=== PATIENT | male | born 1945 | race Hispanic/Latino ===

== ENCOUNTER 2019-09-21 05:44 | Day surgery (SDC) | payer OTHER ==
[~2019-09-21] VITALS: Ht 167.6 cm; Wt 82.6 kg
[~2019-09-21 05:44] MED LIST: BACL10TA PO; CLON0.5T4 PO; DORZ10DR19 OU; EZET10TA48 PO; FINA5TAB41 PO; LATA7.5D OU; NITR0.4T SL; OLME5TAB6 PO; OMEP20TA25 PO; PRAV40TA3 PO; TAMS-1 PO; TICA90TA PO
[2019-09-21] MEDS ORDERED: SODIUM CHLORIDE 0.9% 1000ML 1,000 ML IV ONE (05:55)
[2019-09-21 06:48] VITALS: BP 142/80
[2019-09-21] MEDS ORDERED: ASPI-555 PO (07:47)
[2019-09-21] MEDS ORDERED: AMLO2.5T4 PO (07:47)
[2019-09-21] MEDS ORDERED: PROPOFOL 10 MG/ML 20ML VIAL IV ONE ×2 (07:57)
[2019-09-21] MEDS ORDERED: GLYCOPYRROLATE 0.2 MG/ML 5 ML VIAL ONE (08:09)
[2019-09-21] MEDS ORDERED: EPINEPHRINE 1 MG/ML AMPULE ONE (08:15)
[2019-09-21 08:33] VITALS: BP 96/44
[2019-09-21 08:53] VITALS: BP 107/58
== END 2019-09-21 08:57 | disposition home or self-care (01) ==
LOC: ENDO 05:44 → DAH 05:44 → ENDO 08:57
PROVIDERS: ATTEND Internal Medicine
DX: R19.7 Diarrhea, unspecified (principal); R10.12 Left upper quadrant pain; K31.819 Angiodysplasia of stomach and duodenum without bleeding; K29.50 Unspecified chronic gastritis without bleeding; E78.5 Hyperlipidemia, unspecified; I10 Essential (primary) hypertension; F41.9 Anxiety disorder, unspecified; F32.9 Major depressive disorder, single episode, unspecified; Z95.5 Presence of coronary angioplasty implant and graft; Z79.899 Other long term (current) drug therapy; Z82.49 Family history of ischemic heart disease and other diseases of the circulatory system
CPT/HCPCS: 43239; 43255; 45380; 88305; 93005; A4215; A4221; A4222; A4223; A4606; A4620; A4663; J0171; J2704 ×2; J3490; J7030

== ENCOUNTER → 2020-11-09 | Outpatient (CLI) | payer OTHER ==
[~2020-11-09] MED LIST changes: +AMLO2.5T4 PO; +ASPI-556 PO; -OMEP20TA25 PO
== END | disposition home or self-care (01) ==
LOC: SHCH 07:44
PROVIDERS: ATTEND Internal Medicine Cardiovascular Disease
DX: I73.9 Peripheral vascular disease, unspecified (principal)
CPT/HCPCS: 93925

== ENCOUNTER → 2021-11-02 | Outpatient (CLI) | payer OTHER | END | disposition home or self-care (01) | LOC: RAH 08:55 | PROVIDERS: ATTEND Internal Medicine Gastroenterology | DX: N28.1 Cyst of kidney, acquired (principal); R10.10 Upper abdominal pain, unspecified | CPT/HCPCS: 76700 ==

== ENCOUNTER 2021-11-17 09:37 | Emergency (ER) | payer OTHER ==
[~2021-11-17] VITALS: Ht 167.6 cm; Wt 81.2 kg
[2021-11-17] MEDS ORDERED: ONDANSETRON 4MG INJ IVP SCH (10:30)
[2021-11-17] MEDS ORDERED: MORPHINE 4 MG SYG IVP SCH (10:30)
[2021-11-17] MEDS ORDERED: PANTOPRAZOLE 40 MG/VIAL IVP SCH (10:30)
[2021-11-17] MEDS ORDERED: 0.9%NACL 1000ML 1,000 ML IV SCH (10:30)
[2021-11-17] MEDS ORDERED: LIDOCAINE HCL 2% VISCOUS 15 ML UDCUP PO SCH (10:30)
[2021-11-17] MEDS ORDERED: MAG/ALUM/SIMETH 30 ML UDCUP PO SCH (10:30)
[2021-11-17] MEDS ORDERED: DICYCLOMINE HCL 10 MG/5 ML ML PO SCH (10:30)
[2021-11-17] MEDS ORDERED: MORPHINE 4 MG SYG ONE (10:31)
[2021-11-17] MEDS ORDERED: PANTOPRAZOLE 40 MG/VIAL ONE (10:32)
[2021-11-17] MEDS ORDERED: MAG/ALUM/SIMETH 30 ML UDCUP ONE (10:32)
[2021-11-17] MEDS ORDERED: ONDANSETRON 4MG INJ ONE (10:32)
[2021-11-17] MEDS ORDERED: DICYCLOMINE HCL 10 MG/5 ML ML PO ONE (10:32)
[2021-11-17] MEDS ORDERED: LIDOCAINE HCL 2% VISCOUS 15 ML UDCUP ONE (10:32)
[2021-11-17 11:00] LABS: BASOPHILS % (AUTO) 0.6 % (0.0-5.0); EOSINOPHILS % (AUTO) 1.5 % (0.0-8.0); HEMATOCRIT 38.3 % (42-54); LYMPHOCYTES % (AUTO) 31.5 % (21.0-51.0); MEAN CORPUSCULAR HEMOGLOBIN 30.8 pg (27.0-33.0); MEAN CORPUSCULAR HGB CONC 32.9 g/dL (32.0-36.0); MEAN CORPUSCULAR VOLUME 93.6 fL (79-99); MONOCYTES % (AUTO) 7.1 % (3.0-13.0); NEUTROPHILS % (AUTO) 59.1 % (40.0-77.0); PLATELET COUNT (AUTO) 163 K/uL (130-400); RED BLOOD CELL COUNT(AUTO) 4.09 MIL/uL (4.50-6.20); RED CELL DISTRIBUTION WIDTH 13.7 % (11.0-15.5); WHITE BLOOD COUNT (AUTO) 4.7 K/uL (4.8-10.8)
[2021-11-17 12:23] LABS: ALBUMIN 3.2 g/dL (3.5-5.0); BILIRUBIN,TOTAL 0.4 mg/dL (0.2-1.0); CREATININE 0.8 mg/dL (0.5-1.5)
[2021-11-17 13:11] VITALS: BP 143/65
[2021-11-17] MEDS ORDERED: ACET-2079 PO (13:18)
== END 2021-11-17 13:55 | disposition home or self-care (01) ==
LOC: EDH 09:37
DX: R10.10 Upper abdominal pain, unspecified (principal); R10.13 Epigastric pain; E78.00 Pure hypercholesterolemia, unspecified; I10 Essential (primary) hypertension; E86.1 Hypovolemia; Z79.82 Long term (current) use of aspirin; Z79.899 Other long term (current) drug therapy; Z98.890 Other specified postprocedural states
CPT/HCPCS: 36415; 80053; 83690; 85025; 93005; 96361; 96374; 96375; 99284; C9113; J2270; J2405; J7030

== ENCOUNTER → 2021-12-07 | Outpatient (CLI) | payer OTHER ==
[~2021-12-07] MED LIST changes: +ACET-2079 PO; +SINCALIDE 5 MCG ML VIAL IV ONE
== END | disposition home or self-care (01) ==
LOC: RAH 10:48
PROVIDERS: ATTEND Internal Medicine Gastroenterology
DX: R10.10 Upper abdominal pain, unspecified (principal)
CPT/HCPCS: 78227; A9537; J2805

== ENCOUNTER 2022-06-05 10:20 | Day surgery (SDC) | payer OTHER ==
[2022-06-05] VITALS (10 sets, daily range): BP systolic 124–164; BP diastolic 64–75
[~2022-06-05] VITALS: Ht 167.6 cm; Wt 77.6 kg
[~2022-06-05 10:20] MED LIST changes: -AMLO2.5T4 PO; -BACL10TA PO; -CLON0.5T4 PO; +DEXL60CA3 PO; +OLME5TAB29 PO; -OLME5TAB6 PO; -SINCALIDE 5 MCG ML VIAL IV ONE; -TICA90TA PO
[2022-06-05] MEDS ORDERED: 0.9%NACL 1000ML 1,000 ML IV ONE (11:07)
[2022-06-05] MEDS ORDERED: NAPR500T6 PO (12:09)
[2022-06-05] MEDS ORDERED: VALS320T16 PO (12:09)
[2022-06-05] MEDS ORDERED: PROPOFOL 10 MG/ML 20ML VIAL IV ONE (12:54)
[2022-06-05] MEDS ORDERED: GLYCOPYRROLATE 0.2 MG/ML 5 ML VIAL ONE (13:22)
== END 2022-06-05 14:25 | disposition home or self-care (01) ==
LOC: DAH 10:20 → ENDO 10:20
PROVIDERS: ATTEND Pediatrics Pediatric Gastroenterology
DX: R93.2 Abnormal findings on diagnostic imaging of liver and biliary tract (principal); Z20.822 Contact with and (suspected) exposure to COVID-19; R10.12 Left upper quadrant pain; K86.89 Other specified diseases of pancreas; R63.4 Abnormal weight loss; I25.2 Old myocardial infarction; I25.10 Atherosclerotic heart disease of native coronary artery without angina pectoris; I10 Essential (primary) hypertension; F41.9 Anxiety disorder, unspecified; F32.A Depression, unspecified; E78.5 Hyperlipidemia, unspecified; M19.90 Unspecified osteoarthritis, unspecified site; Z98.890 Other specified postprocedural states; Z86.010 Personal history of colon polyps; Z95.1 Presence of aortocoronary bypass graft; Z79.899 Other long term (current) drug therapy
CPT/HCPCS: 87426; 43237; 93005; J7030; J2704; J3490; A4620; A4215; A4223; A4222; A4221; A4663; A4606

== ENCOUNTER → 2023-04-08 | Outpatient (CLI) | payer OTHER ==
[~2023-04-08] MED LIST changes: -ACET-2079 PO; +NAPR500T6 PO; +VALS320T16 PO
[2023-04-08 12:47] LABS: CHOLESTEROL 163 mg/dL (<200); HDL CHOLESTEROL 79 mg/dL (29-71); LDL DIRECT 72 mg/dL (0-99); TRIGLYCERIDES 47 mg/dL (30-200)
== END | disposition home or self-care (01) ==
LOC: LAB 08:18
PROVIDERS: ATTEND Internal Medicine Cardiovascular Disease
DX: E78.5 Hyperlipidemia, unspecified (principal)
CPT/HCPCS: 36415; 80061

== ENCOUNTER 2023-06-18 06:41 | Day surgery (SDC) | payer OTHER ==
[2023-06-14 17:04] LABS: BASOPHILS # (AUTO) 0.03 K/uL (0.00-0.20); BASOPHILS % (AUTO) 0.6 % (0.0-5.0); EOSINOPHILS # (AUTO) 0.07 K/uL (0.00-0.70); EOSINOPHILS % (AUTO) 1.4 % (0.0-8.0); IMMATURE GRANULOCYTE ABSOLUTE 0.02 K/uL (0-1); LYMPHOCYTES # (AUTO) 2.1 K/uL (1.0-4.8); LYMPHOCYTES % (AUTO) 39.9 % (21.0-51.0); MEAN CORPUSCULAR HGB CONC 32.4 g/dL (32.0-36.0); MEAN CORPUSCULAR VOLUME 95.6 fL (79-99); MONOCYTES # (AUTO) 0.4 K/uL (0.1-1.0); MONOCYTES % (AUTO) 7.4 % (3.0-13.0); NEUTROPHILS # (AUTO) 2.6 K/uL (1.8-7.7); NEUTROPHILS % (AUTO) 50.3 % (40.0-77.0); PLATELET COUNT (AUTO) 173 K/uL (130-400); RED BLOOD CELL COUNT(AUTO) 3.87 MIL/uL (4.50-6.20); RED CELL DISTRIBUTION WIDTH 13.5 % (11.0-15.5); WHITE BLOOD COUNT (AUTO) 5.2 K/uL (4.8-10.8)
[2023-06-14 17:18] LABS: ALBUMIN 3.5 g/dL (3.5-5.0); BILIRUBIN,TOTAL 0.5 mg/dL (0.2-1.0); CREATININE 1.2 mg/dL (0.5-1.5); POTASSIUM 4.2 mmol/L (3.5-5.1); TOTAL PROTEIN, SERUM 6.6 g/dL (6.0-8.3)
[2023-06-17 16:46] VITALS: BP 140/72; PULSE 54; RESP 18
[2023-06-18] VITALS (19 sets, daily range): BP systolic 132–168; BP diastolic 61–84; PULSE 54–74; RESP 14–18
[~2023-06-18] VITALS: Ht 167.6 cm; Wt 75.4 kg
[~2023-06-18 06:41] MED LIST changes: -DEXL60CA3 PO; -NAPR500T6 PO; -NITR0.4T SL; -OLME5TAB29 PO
[2023-06-18] MEDS ORDERED: LACTATED RINGERS 1000ML 1,000 ML IV ONE ×2 (08:07→08:41)
[2023-06-18] MEDS ORDERED: CEFAZOLIN SODIUM 2 GM VIAL ONE (08:41)
[2023-06-18] MEDS ORDERED: MIDAZOLAM HCL 1 MG/ML 2ML VIAL ONE (08:50)
[2023-06-18] MEDS ORDERED: LIDOCAINE HCL 1% 20 ML VIAL ONE (08:50)
[2023-06-18] MEDS ORDERED: LIDOCAINE PF 100MG/5ML (2%) SYRINGE 5ML ONE (08:50)
[2023-06-18] MEDS ORDERED: PROPOFOL 10 MG/ML 20ML VIAL IV ONE (08:51)
[2023-06-18] MEDS ORDERED: FENTANYL CITRATE PF 50 MCG/1 ML 2ML VIAL ONE ×2 (08:51→10:00)
[2023-06-18] MEDS ORDERED: ROCURONIUM 10MG/1ML SYR 10 MG/ML ML ONE (08:51)
[2023-06-18] MEDS ORDERED: DEXAMETHASONE SOD PHOSPHATE 4 MG/ML 1ML VIAL ONE (08:52)
[2023-06-18] MEDS ORDERED: ROPIVACAINE 0.5% 5MG/ML 30ML IJ ONE (08:54)
[2023-06-18] MEDS: CEFAZOLIN SODIUM 2 GM VIAL ONE ×2 (09:11→09:23)
[2023-06-18] MEDS ORDERED: IOHEXOL-350 50ML VIAL IV ONE (09:13)
[2023-06-18] MEDS ORDERED: EPHEDRINE SULFATE 50 MG/ML AMPULE ONE (09:43)
[2023-06-18] MEDS ORDERED: NEOSTIGMINE 5MG/5ML SYR IV ONE (10:03)
[2023-06-18] MEDS ORDERED: GLYCOPYRROLATE 1 MG/5 ML SYRINGE ONE (10:03)
[2023-06-18] MEDS ORDERED: ONDANSETRON 4MG INJ ONE (11:05)
[2023-06-18] MEDS ORDERED: MEPERIDINE-PF 25 MG/ML SYG ONE ×2 (11:05→11:27)
[2023-06-18] MEDS ORDERED: ISOS30TA92 PO (11:14)
[2023-06-18] MEDS ORDERED: TRAM50TA4 PO (11:14)
== END 2023-06-18 12:40 | disposition home or self-care (01) ==
LOC: DAH 06:41
PROVIDERS: ATTEND Surgery
DX: K80.44 Calculus of bile duct with chronic cholecystitis without obstruction (principal); K82.8 Other specified diseases of gallbladder; I10 Essential (primary) hypertension; F41.9 Anxiety disorder, unspecified; F32.A Depression, unspecified; M19.90 Unspecified osteoarthritis, unspecified site; I25.10 Atherosclerotic heart disease of native coronary artery without angina pectoris; E78.5 Hyperlipidemia, unspecified; Z95.5 Presence of coronary angioplasty implant and graft; Z86.010 Personal history of colon polyps; Z79.82 Long term (current) use of aspirin; Z79.899 Other long term (current) drug therapy; Z79.01 Long term (current) use of anticoagulants
CPT/HCPCS: 80053; 85025; 86850 ×2; 86900 ×2; 86901 ×2; 36415 ×2; 93005; 47563; 64488; 88304; 74300; A6260; J1100; A4663; J7120 ×3; A4649; A4606; C1758; J3010 ×2; J3490 ×2; J2710; J2001; J2250; J2704; J2405; J2175 ×2; J2795; Q9967; J0690; C1769 ×2; A4215; A4223; A4222; A4221; A4600; G0168

== ENCOUNTER → 2023-09-19 | Outpatient (CLI) | payer OTHER ==
[~2023-09-19] MED LIST changes: +ISOS30TA92 PO; +TRAM50TA4 PO
== END | disposition home or self-care (01) ==
LOC: RAH 08:47
PROVIDERS: ATTEND Internal Medicine Cardiovascular Disease
DX: K55.1 Chronic vascular disorders of intestine (principal); R10.84 Generalized abdominal pain; I70.0 Atherosclerosis of aorta
CPT/HCPCS: 76775

== ENCOUNTER → 2023-10-22 | Outpatient (CLI) | payer OTHER ==
[~2023-10-22] MED LIST changes: +IOHEXOL 350 MG/ML 100ML INFUS..BTL IV ONE
== END | disposition home or self-care (01) ==
LOC: RAH 09:14
PROVIDERS: ATTEND Internal Medicine Gastroenterology
DX: N28.1 Cyst of kidney, acquired (principal); K59.00 Constipation, unspecified; N40.0 Benign prostatic hyperplasia without lower urinary tract symptoms; K82.9 Disease of gallbladder, unspecified; R10.10 Upper abdominal pain, unspecified; Z90.49 Acquired absence of other specified parts of digestive tract
CPT/HCPCS: 74177; Q9967

== ENCOUNTER → 2024-02-04 | Outpatient (CLI) | payer OTHER ==
[~2024-02-04] MED LIST changes: -IOHEXOL 350 MG/ML 100ML INFUS..BTL IV ONE
[2024-02-04 12:05] LABS: BASOPHILS # (AUTO) 0.03 K/uL (0.00-0.20); BASOPHILS % (AUTO) 0.6 % (0.0-5.0); EOSINOPHILS % (AUTO) 1.8 % (0.0-8.0); HEMATOCRIT 38.8 % (42-54); IMMATURE GRANULOCYTE ABSOLUTE 0.02 K/uL (0-1); LYMPHOCYTES # (AUTO) 1.8 K/uL (1.0-4.8); MEAN CORPUSCULAR HEMOGLOBIN 31.4 pg (27.0-33.0); MEAN CORPUSCULAR VOLUME 95.3 fL (79-99); MONOCYTES # (AUTO) 0.4 K/uL (0.1-1.0); MONOCYTES % (AUTO) 6.4 % (3.0-13.0); NEUTROPHILS # (AUTO) 3.1 K/uL (1.8-7.7); NEUTROPHILS % (AUTO) 57.8 % (40.0-77.0); PLATELET COUNT (AUTO) 153 K/uL (130-400); RED BLOOD CELL COUNT(AUTO) 4.07 MIL/uL (4.50-6.20); RED CELL DISTRIBUTION WIDTH 13.2 % (11.0-15.5); WHITE BLOOD COUNT (AUTO) 5.4 K/uL (4.8-10.8)
[2024-02-04 12:24] LABS: CREATININE 0.8 mg/dL (0.5-1.3); POTASSIUM 4.6 mmol/L (3.5-5.1)
[2024-02-04 13:19] LABS: INR 1.04 (0.85-1.15); PARTIAL THROMBOPLASTIN TIME 26.3 SEC (26.3-35.5)
== END | disposition home or self-care (01) ==
LOC: LAB 10:55
PROVIDERS: ATTEND Internal Medicine Cardiovascular Disease
DX: I10 Essential (primary) hypertension (principal); E78.5 Hyperlipidemia, unspecified; I25.10 Atherosclerotic heart disease of native coronary artery without angina pectoris
CPT/HCPCS: 36415; 80048; 85025; 85610; 85730

== ENCOUNTER 2025-01-29 21:46 | Emergency (ER) | payer OTHER ==
[~2025-01-29] VITALS: Ht 167.6 cm; Wt 69.4 kg
--- NOTE | 2025-01-29 21:53 | NUR ---
UA CUP PROVIDED
--- NOTE | 2025-01-29 22:11 | EKG ---
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
[2025-01-29] MEDS: LACTATED RINGERS 1000ML IV STA (22:49)
[2025-01-29] MEDS: cloNIDine HCL 0.2 MG TABLET PO ONE (22:49)
--- NOTE | 2025-01-29 22:57 | ERN ---
General Chief Complaint: Hypertension Stated Complaint: HYPERTENSION Time Seen by MD: 21:59 Source: patient, family History of Present Illness Initial Comments Patient is a 79-year-old male who comes in with hypertension. It is accompanied by a headache as well as posterior neck pain. Only other associated symptom is some midepigastric chronic abdominal pain that he has had for years. Allergies: Coded Allergies: No Known Drug Allergies (Unverified Allergy, Unknown, 04/01/15) Home Meds Reported Medications Esomeprazole Magnesium (Esomeprazole Magnesium) 40 Mg Capsule.dr, 1 CAP PO DAILY for 30 Days, #30 CAP 0 Refills 06/27/24 Rosuvastatin Calcium (Rosuvastatin Calcium) 5 Mg Tablet, 5 MG PO QWEEK, TAB 06/27/24 Clonidine HCl (Clonidine HCl) 0.1 Mg Tablet, 0.1 MG PO DAILY PRN for INCREASED BLOOD PRESSURE, TAB 06/27/24 Nitroglycerin (Nitroglycerin) 0.4 Mg Tab.subl, 1 TAB SL AD for chest pain, #25 TAB 0 Refills 1st sign of attack; may repeat every 5 mins; if pain persists after 3 in 15 min, medical attention is recommended 06/27/24 Tramadol Hcl (Tramadol HCl) 50 Mg Tablet, 50 MG PO BID PRN for PAIN, TAB 06/18/23 Aspirin (Aspir 81) 81 Mg Tablet.dr, 81 MG PO DAILY, TAB 09/21/19 Tamsulosin HCl (Flomax) 0.4 Mg Cap.er.24h, 0.4 MG PO BID, CAPSULE.DR 09/18/19 Ezetimibe (Ezetimibe) 10 Mg Tablet, 10 MG PO DAILY, TAB 09/18/19 Latanoprost/Pf (Latanoprost 0.005% Eye Drop) 7.5 Ml Drops, 1 DROP OU HS, DROP 09/18/19 Dorzolamide HCl/Pf (Dorzolamide 2% Eye Drop) 2 % Drops, 1 DROP OU BID, DROP 09/18/19 Finasteride (Finasteride) 5 Mg Tablet, 5 MG PO DAILY, TAB 05/24/15 Discontinued Reported Medications Isosorbide Mononitrate (Isosorbide Mononitrate ER) 30 Mg Tab.er.24h, 30 MG PO DAILY, TAB 06/18/23 Past Medical History Past Medical History: Angina, High Cholesterol, Heart Disease, Hypertension, Other Medical History Other: PROSTATE Past Surgical History: Cholecystectomy, CABG, Other Surgical History Other: HERNIA, CARADIAC STENTS Family History Family History: Negative Social History Social History: Negative, Other Constitutional: (-) chills, (-) diaphoresis, (-) fever, (-) malaise, (-) weakness, (-) other documentation EENTM: (-) eye pain, (-) blurred vision, (-) tearing, (-) double vision, (-) ear pain, (-) ear discharge, (-) nose pain, (-) nose congestion, (-) throat pain, (-) Throat swelling, (-) mouth pain, (-) tooth pain, (-) mouth swelling, (-) other documentation Respiratory: (-) cough, (-) orthopnea, (-) short of breath, (-) stridor, (-) wheezing, (-) other documentation Cardiovascular: (-) chest pain, (-) edema, (-) palpitations, (-) syncope, (-) dyspnea on exertion, (-) other documentation Gastrointestinal/Abdominal: (-) nausea, (-) vomiting, (-) diarrhea, (-) abdominal pain, (-) abdominal distention, (-) constipation, (-) rectal bleeding, (-) dark stool/melena, (-) other documentation Musculoskeletal: (+) Neck pain Skin: (-) laceration, (-) contusion, (-) abrasion, (-) abscess, (-) rash, (-) change in color, (-) change in hair, (-) change in nails, (-) diaphoresis, (-) dryness, (-) other documentation Neuro: (+) headache Physical Exam General Appearance: (+) no apparent distress Orientation: (+) alert, (+) oriented x 3 Head/Face Trauma: No Eye: bilateral eye normal inspection, bilateral eye PERRL, bilateral eye EOMI Ear, Nose, Throat: (+) hearing grossly normal, (+) normal ENT inspection Neck: (+) normal inspection, (+) supple, (+) tender Respiratory: (+) chest non-tender, (+) lungs clear, (+) well ventilated Heart: (+) regular, (+) bradycardia Vascular: (+) no edema, (+) normal peripheral pulse Gastrointestinal: (+) soft, (+) non-tender, (+) bowel sound present Back: (+) normal inspection, (+) no CVA tenderness Extremities: (+) normal range of motion, (+) non-tender Results Laboratory and Microbiology Lab and Micro Result Laboratory Tests Test 01/29/25 22:08 White Blood Count 6.0 K/uL (4.8-10.8) Red Blood Count 4.21 MIL/uL (4.50-6.20) L Hemoglobin 13.3 g/dL (14.0-18.0) L Hematocrit 39.6 % (42-54) L Mean Corpuscular Volume 94.1 fL (79-99) Mean Corpuscular Hemoglobin 31.6 pg (27.0-33.0) Mean Corpuscular Hemoglobin Concent 33.6 g/dL (32.0-36.0) Red Cell Distribution Width 13.3 % (11.0-15.5) Platelet Count 174 K/uL (130-400) Mean Platelet Volume 11.6 fL (7.5-10.5) H Immature Granulocyte % (Auto) 0.2 % (0-1) Neutrophils (%) (Auto) 50.9 % (40.0-77.0) Lymphocytes (%) (Auto) 38.4 % (21.0-51.0) Monocytes (%) (Auto) 8.0 % (3.0-13.0) Eosinophils (%) (Auto) 2.0 % (0.0-8.0) Basophils (%) (Auto) 0.5 % (0.0-5.0) Neutrophils # (Auto) 3.1 K/uL (1.8-7.7) Lymphocytes # (Auto) 2.3 K/uL (1.0-4.8) Monocytes # (Auto) 0.5 K/uL (0.1-1.0) Eosinophils # (Auto) 0.12 K/uL (0.00-0.70) Basophils # (Auto) 0.03 K/uL (0.00-0.20) Absolute Immature Granulocyte (auto 0.01 K/uL (0-1) Nucleated Red Blood Cells 0.0 % (0.0-0.19) Sodium Level 139 mmol/L (136-145) Potassium Level 4.7 mmol/L (3.5-5.1) Chloride Level 103 mmol/L (101-111) Carbon Dioxide Level 29 mmol/L (21-32) Blood Urea Nitrogen 23 mg/dL (7-18) H Creatinine 0.7 mg/dL (0.5-1.3) Glomerular Filtration Rate Calc 94 mL/min (>90) Random Glucose 105 mg/dL (70-105) Total Calcium 8.9 mg/dL (8.5-10.1) Troponin I High Sensitivity 8 ng/L (4-75) MDM MDM: Differential diagnosis: Transient hypertension, medical noncompliance, dehydration (yes dehydration can cause hypertension), acute LA, chromo cytosis, pain. Rationale: Tests considered and ordered secondary to shared decision making include: Previous outside records reviewed: Old ER visits. Risk of complication and/or morbidity or mortality of patient management: None Medications-Per medication reconciliation Need for hospitalization: Patient does not meet criteria for hospitalization, though this may change. Need for emergency major/minor surgery: No There are no social concerns with this patient. I will order troponin EKG CMP CBC. I will also give the patient fluid and some pain medications +muscle relaxants for his headache. Prescription drug management Prescriptions will include symptomatic care Patient's prior external medical records from other ER visits were reviewed by me as indicated. Prior testing and results from previous visits were reviewed. Prior tests were taken into account with medical decision making and resource utilization, independent historian/historians were used to obtain complete medical history. I independently interpreted the test that were performed, results were reviewed by me and considered findings on radiology if ordered. Patient's workup has been negative for acute medical issues. CBC shows a normal white blood cell count and mild normocytic anemia. Chemistry panel shows a slight elevation of his BUN everything else is normal, including a troponin of eight. Single dose of clonidine brought the patient's blood pressure down to normal. He is safe for discharge. ED Course Orders Procedure Category Date Status Time 12 Lead Ekg Tracing- EKG 01/29/25 Complete Technical 22:10 Cbc With Differential LAB 01/29/25 Complete 22:37 Basic Metabolic Panel LAB 01/29/25 Complete 22:37 Lactated Ringers PHA 01/29/25 Complete 1000ml (Lactated 22:37 Clonidine Hcl 0.2 Mg PHA 01/29/25 Complete Tablet (Catapres 0. 23:00 Troponin I High LAB 01/29/25 Complete Sensitivity 22:57 Ketorolac PHA 01/29/25 Complete Tromethamine 30mg/Ml 23:00 Cyclobenzaprine Hcl PHA 01/29/25 Complete (Cyclobenzaprine Hcl 23:00 Current Medications Medications (Trade) Dose Ordered Sig/Dale Route PRN Reason Start Time Stop Time Status Last Admin Dose Admin Clonidine HCl (CATApres 0.2 MG TAB) 0.2 mg ONCE ONCE PO 01/29/25 23:00 01/29/25 23:01 DC 01/29/25 22:49 Cyclobenzaprine HCl (Cyclobenzaprine HCl) 10 mg ONCE ONCE PO 01/29/25 23:00 01/29/25 23:01 DC 01/29/25 23:05 Ketorolac Tromethamine (toRADol) 30 mg ONCE ONCE IVP 01/29/25 23:00 01/29/25 23:01 DC 01/29/25 23:05 Lactated Ringer's (Lactated Ringers 1000ml) 1,000 ml BOLUS STAT IV 01/29/25 22:37 01/29/25 22:41 DC 01/29/25 22:49 Vital Signs Date Time Temp Pulse Resp B/P (MAP) Pulse Ox O2 Delivery O2 Flow Rate FiO2 01/30/25 00:05 48 16 124/62 98 Room Air* 0 01/29/25 23:08 98.1 47 19 164/66 97 Room Air* 0 01/29/25 22:49 52 179/82 01/29/25 22:12 58 19 201/79 95 Room Air* 0 01/29/25 21:47 97.9 75 18 209/78 98 Room Air DX & DISP Disposition: Discharge Departure Impression: Primary Impression: Coronary artery disease Additional Impression: Uncontrolled hypertension Condition: Stable Scripts Clonidine HCl (Clonidine HCl) 0.1 Mg Tablet 1 TAB PO HS PRN for IF SBP GREATER THAN 170 for 30 Days, #30 TAB 0 Refills Prov: JEYSON AMAYA MD 01/30/25 Additional Instructions: I have sent a prescription over to your pharmacy for PRN doses of clonidine if your blood pressure should go above 170 systolic. Please see your primary care physician regarding a possible reintroduction of a baseline blood pressure medication. Referrals: CHATA SORIA MD (PCP) JEYSON AMAYA MD Jan 29, 2025 22:57
[2025-01-29 23:00] LABS: BASOPHILS # (AUTO) 0.03 K/uL (0.00-0.20); BASOPHILS % (AUTO) 0.5 % (0.0-5.0); EOSINOPHILS # (AUTO) 0.12 K/uL (0.00-0.70); HEMATOCRIT 39.6 % (42-54); IMMATURE GRANULOCYTE ABSOLUTE 0.01 K/uL (0-1); LYMPHOCYTES # (AUTO) 2.3 K/uL (1.0-4.8); LYMPHOCYTES % (AUTO) 38.4 % (21.0-51.0); MEAN CORPUSCULAR HEMOGLOBIN 31.6 pg (27.0-33.0); MEAN CORPUSCULAR HGB CONC 33.6 g/dL (32.0-36.0); MEAN CORPUSCULAR VOLUME 94.1 fL (79-99); MONOCYTES # (AUTO) 0.5 K/uL (0.1-1.0); NEUTROPHILS # (AUTO) 3.1 K/uL (1.8-7.7); NEUTROPHILS % (AUTO) 50.9 % (40.0-77.0); PLATELET COUNT (AUTO) 174 K/uL (130-400); RED BLOOD CELL COUNT(AUTO) 4.21 MIL/uL (4.50-6.20); RED CELL DISTRIBUTION WIDTH 13.3 % (11.0-15.5)
[2025-01-29] MEDS: ketOROlac 30MG VIAL (30MG/ML) IVP ONE (23:05)
[2025-01-29] MEDS: CYCLOBENZAPRINE HCL 10 MG TABLET PO ONE (23:05)
[2025-01-29 23:08] VITALS: TEMP 98.1
[2025-01-29 23:18] LABS: CREATININE 0.7 mg/dL (0.5-1.3); POTASSIUM 4.7 mmol/L (3.5-5.1)
[2025-01-30 00:05] VITALS: BP 124/62; PULSE 48; RESP 16; O2SAT 98
[2025-01-30] MEDS ORDERED: CLON0.1T PO (00:30)
== END 2025-01-30 00:39 | disposition home or self-care (01) ==
LOC: EDH 21:46
DX: I25.10 Atherosclerotic heart disease of native coronary artery without angina pectoris (principal); I10 Essential (primary) hypertension; E78.00 Pure hypercholesterolemia, unspecified; Z79.82 Long term (current) use of aspirin; Z79.899 Other long term (current) drug therapy; Z90.49 Acquired absence of other specified parts of digestive tract; Z95.1 Presence of aortocoronary bypass graft
CPT/HCPCS: 99285; 96374; 84484; 80048 ×2; 85025 ×2; 85610; 85730; 36415 ×2; 93005 ×2; J1885; J7120; A6260

== ENCOUNTER → 2025-01-29 | Outpatient (CLI) | payer OTHER ==
[~2025-01-29] VITALS: Ht 167.6 cm; Wt 69.7 kg
[~2025-01-29] MED LIST changes: +CLON0.1T PO; +ESOM40CA66 PO; +NITR0.4T50 SL; -PRAV40TA3 PO; +ROSU5TAB51 PO; -TAMS-1 PO; +TAMS-55 PO; -VALS320T16 PO
--- NOTE | 2025-01-29 10:55 | EKG ---
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
[2025-01-29 11:06] LABS: BASOPHILS # (AUTO) 0.03 K/uL (0.00-0.20); BASOPHILS % (AUTO) 0.6 % (0.0-5.0); EOSINOPHILS % (AUTO) 2.1 % (0.0-8.0); HEMATOCRIT 39.4 % (42-54); IMMATURE GRANULOCYTE ABSOLUTE 0.01 K/uL (0-1); LYMPHOCYTES % (AUTO) 40.5 % (21.0-51.0); MEAN CORPUSCULAR HEMOGLOBIN 31.6 pg (27.0-33.0); MEAN CORPUSCULAR HGB CONC 33.2 g/dL (32.0-36.0); MEAN CORPUSCULAR VOLUME 95.2 fL (79-99); MONOCYTES # (AUTO) 0.4 K/uL (0.1-1.0); MONOCYTES % (AUTO) 7.6 % (3.0-13.0); NEUTROPHILS # (AUTO) 2.4 K/uL (1.8-7.7); PLATELET COUNT (AUTO) 167 K/uL (130-400); RED BLOOD CELL COUNT(AUTO) 4.14 MIL/uL (4.50-6.20); RED CELL DISTRIBUTION WIDTH 13.4 % (11.0-15.5); WHITE BLOOD COUNT (AUTO) 4.9 K/uL (4.8-10.8)
[2025-01-29 11:11] LABS: CREATININE 0.8 mg/dL (0.5-1.3); POTASSIUM 4.4 mmol/L (3.5-5.1)
[2025-01-29 11:13] VITALS: BP 140/64; PULSE 55; RESP 18; TEMP 97.7
[2025-01-29 11:16] LABS: INR 1.04 (0.85-1.15)
[2025-01-29 11:18] LABS: PARTIAL THROMBOPLASTIN TIME 28.8 SEC (26.3-35.5)
[2025-01-29 14:29] VITALS: BP 140/64; PULSE 55; RESP 18; TEMP 97.7
--- NOTE | 2025-01-29 16:03 | NUR ---
report dr miranda reviewed ekg. requesting cardiac clearance. dr watson/fili notified. office will notify pt.
== END | disposition home or self-care (01) ==
LOC: DAH 10:16 → EDSTATUS 13:00
PROVIDERS: ATTEND Surgery
DX: Z01.818 Encounter for other preprocedural examination (principal); R10.9 Unspecified abdominal pain; Z53.8 Procedure and treatment not carried out for other reasons
CPT/HCPCS: 93005; 80048; 85025; 85610; 85730; 36415; A6260

== ENCOUNTER → 2025-02-04 | Outpatient (CLI) | payer OTHER ==
[~2025-02-04] MED LIST changes: +IOHEXOL 350 MG/ML 100ML INFUS..BTL IV ONE; -ISOS30TA92 PO
--- NOTE | 2025-02-04 10:59 | HMCIMG ---
CT CARDIAC ANGIO W/CONT. CCTA HISTORY: Chest pain COMPARISON: None TECHNIQUE: Multiple sequential axial images of the chest were obtained along with the CT angiogram of the chest study. Patient was given 100 cc of Omnipaque through intravenous route. FINDINGS: There is no evidence of pulmonary nodule or parenchymal disease. No pleural effusion or pericardial effusion is seen. There is no evidence of pneumothorax. There are normal size mediastinal and hilar lymph nodes. The heart is not enlarged. Degenerative changes of the thoracolumbar spine are present. IMPRESSION: 1. No evidence of pulmonary nodule or effusion is seen. Please see CT angiogram report of coronary arteries.
--- NOTE | 2025-02-10 10:59 | CARDIOLOGY ---
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 A dedicated, limited window, coronary imaging protocol was used, with single breath-hold, retrospective ECG gating, and automated arrhythmia rejection. 100 cc of low osmolar contrast agent: Omnipaque 350 was delivered via a 18-gauge IV catheter in the right antecubital fossa, using a power injector and followed by 60 cc of normal saline bolus as a chaser. Collimated images were reformatted at 0.5 mm intervals, and sent to an offline independent workstation for interpretation, using 3D anatomic reconstructions: Curved multiplanar reconstructions, maximum intensity projections, and multiplanar imaging. No metoprolol was administered prior to scanning due to low baseline heart rate. 0.8 mg SL nitroglycerin was given. CORONARY ARTERY DESCRIPTIONS: The coronary arteries arise in normal position. Left main coronary artery: Normal caliber vessel that bifurcates into the LAD and LCx. There is a drug eluting stent in the left main with mid to distal ISR of 40-50% stenosis. Left anterior descending coronary artery: Normal caliber vessel and gives rise to diagonal and septal branches. PROJECTION PRINTER of mid LAD just prior to the SMILEY to LAD anastomosis. There is a subtotally occluded D1 at the ostium and this is a large vessel. Left circumflex coronary artery: Normal caliber, nondominant and gives rise to a large OM branch. PROJECTION PRINTER ostial LCx. Right coronary artery: Large, dominant vessel giving rise to the PL and PDA branches. Severe proximal to distal RCA stenosis with patent SVG to RCA. Patent SMILEY to LAD Patent SVG to OM. Patent SVG to distal RCA. Thoracic Aorta: Normal diameter. Kelle Marina MD Cardiovascular Disease [facility] KELLE MARINA MD Feb 10, 2025 10:59
--- NOTE | 2025-02-15 11:21 | HMCSR ---
APPROVED REPORT EXAM: Two-dimensional and M-mode echocardiogram with Doppler and color Doppler. INDICATION ICD: Chest Pain 2D Dimensions RVDd3.8 cmLVEF(%)57.0 (>50%)LVED Vol(simp.)96.0 mL IVSd0.6 (0.7-1.1cm)FS(%)30 %LVES Vol(simp.)36.0 mL LVDd4.6 (3.8-5.6cm)LA (2D)3.7 (1.6-4.0cm)LVEF(%, simp.)62 % PWd0.7 (0.7-1.1cm)Ao Root(2D)3.2 (2.0-3.7cm)LA ESV INDEX (BP)31.15 mL/m2 IVSs1.2 cmLVOT diam2.1 (1.8-2.4cm) LVDs3.2 (2.5-4.0cm)IVC diam1.7 cm PWs1.0 cm M-Mode Dimensions EPSS0.3 cm LA (MM)4.2 (1.6-4.0cm) Ao Root(MM)2.8 (2.0-3.7cm) Aortic Valve AoV Vmax1.9 m/Trish Peak GR14.1 mmHgLVOT Vmax1.2 m/s AoV VTI0.5 mAo Mean GR7.3 mmHgLVOT VTI0.31 m MINESH (VMAX)2.20 cm2AVA (VTI) 2.3 cm2 Mitral Valve MV E Vmax67.2 cm/sDECEL Mxhs923 ms MV A Vmax60.0 cm/sP 1/2 T79 ms E/A ratio1.1MVA (PHT)2.8 cm2 TDI E/E' Opueqi91.2E/E' Lateral8.1 Medial E' Peak V5.99 cm/sLateral E' Peak V8.34 cm/s Pulmonary Valve PV Vmax0.9 m/sPV VTI0.24 mPV Mean GR2.0 mmHg PV Peak GR3.1 mmHg Tricuspid Valve TR Vmax2.5 m/sRVSP26.0 mmHg TR Peak GR26.0 mmHg Left Ventricle The left ventricle is normal size. There is normal LV segmental wall motion. There is normal left abdelrahman tricular wall thickness. LVEF is 60-65%. The left ventricular diastolic function is normal. Right Ventricle The right ventricle is normal size. The right ventricular systolic function is normal. Atria The left atrium size is normal. The right atrium size is normal. Aortic Valve The aortic valve is normal in structure. No aortic regurgitation is present. There is no aortic valvu lar stenosis. Mitral Valve The mitral valve is normal in structure. Mitral regurgitation is trace. There is no mitral valve sten osis. Tricuspid Valve The tricuspid valve is normal in structure. There is mild tricuspid valve regurgitation noted. Pulmonic Valve Pulmonic valve is not well visualized. There is no pulmonic valvular regurgitation. Great Vessels The aortic root is normal in size. The IVC is normal in size and collapses >50% with inspiration. Pericardium There is no pericardial effusion. Other Information Quality : Good Conclusion The left ventricle is normal size. LVEF is 60-65% with normal LV segmental wall motion. The left ventricular diastolic function is normal. The right ventricular systolic function is normal. Both atria are normal in size. No hemodynamically significant valvular abnormalities. There is no pericardial effusion.
== END | disposition home or self-care (01) ==
LOC: RAH 09:02
PROVIDERS: ATTEND Student in an Organized Health Care Education/Training Program
DX: I07.1 Rheumatic tricuspid insufficiency (principal); R07.9 Chest pain, unspecified; M47.815 Spondylosis without myelopathy or radiculopathy, thoracolumbar region
CPT/HCPCS: 75574; 93306; Q9967

== ENCOUNTER 2025-02-22 06:49 | Day surgery (SDC) | payer OTHER ==
[2025-02-19 10:39] LABS: IMMATURE GRANULOCYTE ABSOLUTE 0.00 K/uL (0-1); NUCLEATED RED BLOOD CELLS 0.0 % (0.0-0.19); PLATELET COUNT (AUTO) 181 K/uL (130-400); RED BLOOD CELL COUNT(AUTO) 4.26 MIL/uL (4.50-6.20); RED CELL DISTRIBUTION WIDTH 13.2 % (11.0-15.5); WHITE BLOOD COUNT (AUTO) 4.4 K/uL (4.8-10.8)
[2025-02-19 10:49] LABS: CREATININE 0.7 mg/dL (0.5-1.3); GLOMERULAR FILTR. RATE CALC 93.0 mL/min (>90); GLUCOSE,RANDOM 78.0 mg/dL (70-105); INR 1.03 (0.85-1.15); SODIUM SERUM 143.0 mmol/L (136-145); UREA NITROGEN, BLOOD 27.0 mg/dL (7-18)
[2025-02-19 11:27] VITALS: BP 142/71; PULSE 72; RESP 18; TEMP 97.9
[2025-02-22] VITALS (13 sets, daily range): BP systolic 132–176; BP diastolic 68–79; PULSE 57–72; RESP 12–18; TEMP 97.1–97.4
[~2025-02-22] VITALS: Ht 167.6 cm; Wt 69.3 kg
[~2025-02-22 06:49] MED LIST changes: -IOHEXOL 350 MG/ML 100ML INFUS..BTL IV ONE
[2025-02-22] MEDS: LACTATED RINGERS 1000ML 1,000 ML IV ONE (07:34)
[2025-02-22] MEDS ORDERED: LIDOCAINE PF 100MG/5ML (2%) SYRINGE 5ML ONE (07:57)
[2025-02-22] MEDS ORDERED: MIDAZOLAM HCL 1 MG/ML 2ML VIAL ONE (07:58)
[2025-02-22] MEDS ORDERED: SUCCINYLCHOLINE CHLORIDE 20 MG/ML 10 ML VIAL ONE (07:58)
[2025-02-22] MEDS ORDERED: SUGAMMADEX SODIUM 200 MG/2 ML VIAL IV ONE (08:58)
--- NOTE | 2025-02-22 09:00 | OP ---
Operative Note: DATE OF PROCEDURE: 02/22/25 SURGEON: AN AYON MD MANAGED SERVICES SALES CONSULTANT: [] ANESTHESIA: [] General ANESTHESIOLOGIST/TRUCK MECHANIC APPRENTICE: [] PREOPERATIVE DIAGNOSIS: [] Upper abdominal pain POSTOPERATIVE DIAGNOSIS: [] The same and intestinal adhesions SYNOPSIS: [] PROCEDURE: [] Laparoscopic exploration lysis of adhesions Upper endoscopy ESTIMATED BLOOD LOSS: [] None INDICATIONS: [] DESCRIPTION OF PROCEDURE: [] With the patient under general anesthesia with the infraumbilical incision and using the direct technique we placed a balloon trocar abdomen insufflated. I placed a camera and I saw in significant adhesions in the upper abdomen. Two 5 mm trocars were placed in the right side of the abdomen and the adhesions were taken down with the electrical device. After adequate hemostasis and and adhesions all remove a no other abnormality was seen in the abdomen. I removed the trocars on the direct vision. The infraumbilical incision fascia was closed with a 3-0 Vicryl. All incisions were closed with 4-0 Monocryl and Steri-Strips. We placed 20 cc of local anesthesia Attention was then given to the head of the patient were an endoscope was placed in the usual fashion. I advanced the scope to the stomach. Esophagus in the rest of the stomach was seemed to be normal. I then suctioned all the fluid and air and removed the scope. Procedures completed with a any complications AN AYON MD Feb 22, 2025 09:00
== END 2025-02-22 10:35 | disposition home or self-care (01) ==
LOC: DAH 06:49
PROVIDERS: ATTEND Surgery
DX: R10.13 Epigastric pain (principal); K66.0 Peritoneal adhesions (postprocedural) (postinfection); I10 Essential (primary) hypertension; I25.10 Atherosclerotic heart disease of native coronary artery without angina pectoris; E78.5 Hyperlipidemia, unspecified; Z90.49 Acquired absence of other specified parts of digestive tract; Z79.82 Long term (current) use of aspirin; Z79.899 Other long term (current) drug therapy
CPT/HCPCS: 80048; 85025; 85610; 85730; 36415; 44180; A6260; A4663; J7030; A4606; J7120; J3010 ×2; J0330; J3490 ×2; J2003; J2250; J2704; J0690; C1769 ×3; A4649; A4930; A4215; A4213; A4222; A4221; A4216; A4450; A4223 ×2; A4600; 43235; J0665

== ENCOUNTER → 2025-06-08 | Outpatient (CLI) | payer OTHER ==
[~2025-06-08] MED LIST changes: -EZET10TA48 PO; +EZET10TA80 PO; +IOHEXOL 350 MG/ML 100ML INFUS..BTL IV ONE; +IOHEXOL-350 50ML VIAL IV ONE; +IOHEXOL-350 75 ML VIAL IV ONE
--- NOTE | 2025-06-08 19:07 | HMCIMG ---
EXAM: CTA Abdomen and Pelvis With Runoff to the Lower Extremities With Intravenous Contrast. CLINICAL HISTORY: Peripheral vascular disease, unspecified. TECHNIQUE: Axial CTA images of the abdomen, pelvis, and lower extremities were obtained in the arterial phase following intravenous contrast administration. Coronal, sagittal, and 3D reformatted images were generated and reviewed on a dedicated workstation. CONTRAST: Intravenous contrast administered without incident. COMPARISON: None provided. FINDINGS: VASCULATURE: Aorta: Mild to moderate diffuse calcific atherosclerosis of the abdominal aorta extending into its major branch vessels. No aneurysm, dissection, or hemodynamically significant stenosis. Celiac Trunk, SMA, LEROY: Patent without significant stenosis or occlusion. Renal Arteries: Patent bilaterally with no significant narrowing or thrombus. Right and Left Iliac, Femoral, Popliteal, and Calf Arteries: Patent with no occlusion or flow-limiting stenosis. Distal leg arteries demonstrate arteriosclerotic changes without occlusion. Lower Thorax: No basilar consolidation or pleural effusion. Calcific atherosclerosis and arteriosclerotic changes noted within pulmonary vasculature bilaterally. ABDOMEN: Liver: Enlarged liver with diffuse decreased attenuation compatible with fatty liver (hepatic steatosis). No focal hepatic lesion. Gallbladder and Bile Ducts: Gallbladder surgically absent. No intrahepatic or extrahepatic biliary dilatation. Pancreas, Spleen, and Adrenals: Unremarkable. Kidneys and Ureters: Both kidneys demonstrate clear cortical cysts???Bosniak type I. The largest cyst measures approximately 10 cm in the left kidney and 5 cm in the right kidney. No solid renal mass or hydronephrosis. Stomach and Bowel: No obstruction or bowel wall thickening. Diffuse uncomplicated colonic diverticulosis. No CT evidence of acute diverticulitis. Appendix: Normal. PELVIS: Bladder: Unremarkable. Reproductive: Uterus surgically absent. Peritoneum: No free air or ascites. Lymph Nodes: No lymphadenopathy. Bones and Soft Tissues: No acute osseous abnormality. Fat-containing umbilical hernia with a fascial defect measuring approximately 1 cm. Bilateral mild to moderate hydroceles incidentally noted. LOWER EXTREMITIES: Soft Tissues: Normal muscle planes and subcutaneous tissues. Lymph Nodes: No lymphadenopathy. Bones: No acute or destructive bony lesions. IMPRESSION: * Mild to moderate diffuse calcific atherosclerosis of the abdominal aorta and its branch vessels without aneurysm, dissection, or hemodynamically significant stenosis. Mild arteriosclerotic changes within distal lower limb arteries. * Fatty liver (hepatic steatosis). * Bilateral Bosniak type I renal cortical cysts ??? largest 10 cm (left) and 5 cm (right). * Diffuse uncomplicated colonic diverticulosis. * Fat-containing umbilical hernia with 1 cm fascial defect. * Bilateral mild to moderate hydroceles. RADIOLOGIC???CLINICAL CORRELATION: The findings are consistent with systemic atherosclerotic disease affecting both the aortoiliac axis and distal vascular territories without evidence of critical stenosis. The hepatic and renal cystic findings are incidental and benign. The fatty liver change likely reflects metabolic or dyslipidemic background, while the colonic and umbilical findings are stable incidental variants. The bilateral hydroceles are noncomplicated. Recommend cardiovascular risk modification, clinical correlation for hepatic steatosis, and routine surveillance of renal cysts given their benign morphology. No acute vascular intervention indicated at present. /[place]
== END | disposition home or self-care (01) ==
LOC: RAH 06-03 08:11
PROVIDERS: ATTEND Student in an Organized Health Care Education/Training Program
DX: K76.0 Fatty (change of) liver, not elsewhere classified (principal); I73.9 Peripheral vascular disease, unspecified; N28.1 Cyst of kidney, acquired; K57.30 Diverticulosis of large intestine without perforation or abscess without bleeding; K42.9 Umbilical hernia without obstruction or gangrene; N43.3 Hydrocele, unspecified; K76.89 Other specified diseases of liver; I70.0 Atherosclerosis of aorta; Z90.49 Acquired absence of other specified parts of digestive tract
CPT/HCPCS: 75635; Q9967 ×2

== ENCOUNTER → 2025-06-15 | Outpatient (CLI) | payer OTHER ==
[~2025-06-15] MED LIST changes: -IOHEXOL-350 50ML VIAL IV ONE; -IOHEXOL-350 75 ML VIAL IV ONE
--- NOTE | 2025-06-15 14:32 | HMCIMG ---
EXAM: CT ABDOMEN AND PELVIS WITHOUT AND WITH INTRAVENOUS CONTRAST Technique: Helical computed tomography from the diaphragms to the inguinal region with axial acquisition and coronal/sagittal reformations; soft-tissue and bone algorithms reviewed. CTDIvol: 23.40 mGy; DLP: 1216.20 mGy???cm. Contrast: Standard dose of intravenous contrast administered. Clinical Information: Evaluation of acquired renal cysts; abdominal pain. Findings: Lung bases: No pleural effusion, lobar collapse, or consolidation in the visualized lung bases. Liver: Normal size, morphology, and attenuation with smooth margins; no focal hepatic lesion or calcification; no intrahepatic biliary ductal dilatation; portal hepatis unremarkable. Portal/hepatic veins and inferior vena cava: Normal caliber. Gallbladder and biliary tree: Status post cholecystectomy. Pancreas: Normal size, morphology, and attenuation; main pancreatic duct not dilated; no peripancreatic fluid or fat stranding. Spleen: Normal size, morphology, and attenuation; no focal splenic lesion. Adrenals: Normal morphology and attenuation bilaterally. Kidneys and ureters: Kidneys are normal in size, shape, position, and attenuation without nephrolithiasis, solid renal mass, or hydronephrosis. Multiple simple cysts are present in both kidneys, largest 8.2 cm in the superior pole of the left kidney and 4.6 cm in the mid pole of the right kidney; no suspicious mural nodularity or thick septations identified. Stomach and duodenum: Stomach distended with normal contour; gastroesophageal junction and pylorus appear normal; duodenum without wall thickening. Small bowel: Jejunal and ileal loops of normal caliber and wall thickness; no mesenteric congestion or abnormal fluid. Colon and appendix: Rectum and colon are distended with fecal material; no colonic wall thickening or pericolonic inflammatory change; no evidence of acute appendicitis. Peritoneum and mesentery: No free intraperitoneal fluid or free air; omentum and mesenteric fat unremarkable. Lymph nodes: No pathologically enlarged lymph nodes identified. Retroperitoneum and vasculature: Abdominal aorta and inferior vena cava in normal course and caliber; moderate atherosclerotic calcifications of the abdominal aorta and bilateral iliac arteries. Pelvic organs: Urinary bladder with normal wall thickness and contour; prostate appears normal. Abdominal wall/soft tissues: No abnormality identified. Osseous structures: Degenerative changes of the dorsolumbar spine; no acute or aggressive osseous abnormality. IMPRESSION: 1. Bilateral renal simple cysts, largest 8.2 cm in left superior pole and 4.6 cm in right mid pole, without suspicious features. 2. No nephrolithiasis, hydronephrosis, or obstructive uropathy. 3. Status post cholecystectomy. 4. Moderate atherosclerotic calcifications of abdominal aorta and bilateral iliac arteries. 5. Degenerative changes of dorsolumbar spine. 6. No other acute intraabdominal or pelvic pathology. /[place]
== END | disposition home or self-care (01) ==
LOC: RAH 08:30
PROVIDERS: ATTEND Urology
DX: N28.1 Cyst of kidney, acquired (principal); I70.0 Atherosclerosis of aorta; M47.816 Spondylosis without myelopathy or radiculopathy, lumbar region; Z90.49 Acquired absence of other specified parts of digestive tract
CPT/HCPCS: 74178; Q9967